=== PATIENT | male | born 1945 | race Caucasian/White ===

== ENCOUNTER 2022-10-11 22:37 | Emergency (ER) | payer OTHER ==
[2022-10-11] MEDS ORDERED: Sodium Chloride 0.9% 10 ML Syringe FLUSH PRN (23:28)
[2022-10-11 23:59] LABS: ESTIMATED GFR 78 mL/min (>60)
[2022-10-12] MEDS ORDERED: Aspirin 81 MG Tab.Chew PO ONE (00:11)
[2022-10-12] MEDS ORDERED: Heparin Sodium 5,000 Units/ML Vial IVPUSH ONE (00:11)
[2022-10-12] MEDS ORDERED: Heparin Sodium/D5W 25,000 UNITS/500 ML BAG IV SCH (00:15)
[2022-10-12] MEDS: Nitroglycerin 0.4 MG Tab.SL SL PRN ×2 (00:21→00:33)
[2022-10-12] MEDS ORDERED: Nitroglycerin/D5W 25 MG/250 ML BOTTLE IV SCH (00:30)
[2022-10-12 01:36] LABS: CORONAVIRUS COVID-19 NAA NEGATIVE (NEGATIVE)
== END 2022-10-12 02:46 ==
LOC: JD.ED 22:37
DX: I21.4 Non-ST elevation (NSTEMI) myocardial infarction (principal); I10 Essential (primary) hypertension; Z72.0 Tobacco use; Z20.822 Contact with and (suspected) exposure to COVID-19
CPT/HCPCS: 0241U; 36415; 71045; 80053; 83735; 83880; 84484; 85025; 85379; 85610; 85730; 93005; 96365; 96366; 96368; 96376; 99285; A9270; J1644; J3490; 93010